=== PATIENT | male | born 1990 | race Caucasian/White ===

== ENCOUNTER 2018-04-03 11:44 | Emergency (ER) | payer SELFPAY ==
[~2018-04-03] VITALS: Ht 175.3 cm; Wt 81.8 kg
[2018-04-03] MEDS ORDERED: CefTRIAXone SODIUM 1 GM/VIAL IM ONE (12:15)
[2018-04-03] MEDS ORDERED: LIDOCAINE HCL/PF 1% 2 ML VIAL IM ONE (12:15)
[2018-04-03] MEDS ORDERED: KETOROLAC TROMETHAMINE 60 MG/2 ML VIAL IM ONE (12:15)
[2018-04-03] MEDS ORDERED: SULFAMETHOX/TRIMETH DS 800-160 MG/TABLET PO ONE (12:15)
[2018-04-03 13:12] VITALS: BP 136/77
== END 2018-04-03 13:19 | disposition home or self-care (01) ==
LOC: EMS 11:45
DX: S81.001A Unspecified open wound, right knee, initial encounter (principal); L03.115 Cellulitis of right lower limb; W23.0XXA Caught, crushed, jammed, or pinched between moving objects, initial encounter; Y93.89 Activity, other specified; Y92.89 Other specified places as the place of occurrence of the external cause; Y99.8 Other external cause status
CPT/HCPCS: 73562; 96372; 99284; J0696; J1885; J3490